=== PATIENT | female | born 1995 | race Hispanic/Latino ===

== ENCOUNTER 2019-01-02 10:26 | Emergency (ER) | payer SELFPAY ==
[2019-01-02] MEDS ORDERED: Famotidine/PF 20 mg/2ml Vial ONE (11:28)
[2019-01-02] MEDS ORDERED: Ondansetron PF 4 MG/2 ML Vial ONE (11:28)
[2019-01-02 11:44] LABS: BHCG - Serum Negative (NEGATIVE); Pregs Control Background? CLEAR/WHITE (CLR/WHITE); Pregs Control Bar Appear? YES (CONTROL BAR)
[2019-01-02 11:47] LABS: Mean Corpuscular HGB CONC 31.6 g/dL (32.0-36.0); Mean Corpuscular Hemoglobin 24.4 pg (27.0-31.0); Mean Corpuscular Volume 77.3 fL (78.0-98.0); Mean Platelet Volume 12.1 fL (7.4-10.4); Platelet Count 200 thou/uL (130-400); RBC Distribution Width 16.1 % (11.5-14.5); Red Blood Cell (RBC) Count 4.93 mill/uL (4.20-5.40); White Blood Cell (WBC) Count 8.3 thou/uL (4.8-10.8)
[2019-01-02 11:49] LABS: ALT (SGPT) 11 U/L (8-55); AST (SGOT) 18 U/L (5-34); Albumin 4.8 g/dL (3.5-5.0); Alkaline Phosphatase 56 U/L (40-150); Anion Gap 20 mmol/L (10-20); BUN (Urea Nitrogen) 15 mg/dL (7.0-18.7); Bilirubin, Total 1.3 mg/dL (0.2-1.2); Calc. Creatinine Clearance 0 mL/min (70-130); Calcium 9.6 mg/dL (7.8-10.44); Carbon Dioxide 19 mmol/L (22-29); Chloride 106 mmol/L (98-107); Estimated GFR-MDRD Greater than 90; Globulin 3.1 g/dL (2.4-3.5); Glucose 67 mg/dL (70-105); Lipase 36 U/L (8-78); Potassium 3.8 mmol/L (3.5-5.1); Protein, Total 7.9 g/dL (6.0-8.3); Sodium 141 mmol/L (136-145)
[2019-01-02 11:54] LABS: #Basophils 0.1 thou/uL (0.0-0.2); #Lymphocytes 0.9 thou/uL (1.20-3.40); #Monocytes 0.5 thou/uL (0.11-0.59); #Neutrophils 6.9 thou/uL (1.40-6.50); %Basophils 0.8 % (0.0-1.0); %Eosinophils 0.1 % (0.0-10.0); %Lymphocytes 10.6 % (21.0-51.0); %Monocytes 5.5 % (0.0-10.0); Large Platelets SLIGHT; MDiff Complete? YES; Microcytosis SLIGHT = 6-15 cells (100X) (0-5/hpf); Platelet Morphology Comment Appears Adequate
[2019-01-02 12:35] LABS: Bilirubin Moderate (Negative); Blood, Urine Large (Negative); Clarity Cloudy (Clear); Glucose, Urine (Dipstick) Negative (Negative); Leukocyte Negative (Negative); Nitrite Positive (Negative); Protein, Urine (Dipstick) > or equal to 300 mg/dL (Neg-Trace)
[2019-01-02 12:40] LABS: RBC/HPF Greater than 50 HPF (0-3)
[2019-01-02 12:41] LABS: Bacteria/HPF 1+ HPF (None Seen); Squamous Epithelial 0-3 HPF (0-3)
[2019-01-02 12:42] LABS: Mucous/LPF 1+ LPF (<2+)
== END 2019-01-02 13:00 | disposition home or self-care (01) ==
LOC: SCSER 10:26
DX: K29.70 Gastritis, unspecified, without bleeding (principal); F17.210 Nicotine dependence, cigarettes, uncomplicated
CPT/HCPCS: 80053; 81003; 81015; 83690; 84703; 85025; 96361; 96374; 96375; J2405; S0028

== ENCOUNTER 2019-08-07 21:39 | Emergency (ER) | payer SELFPAY ==
[2019-08-07 22:36] LABS: Bilirubin Negative (Negative); Blood, Urine Negative (Negative); Clarity Turbid (Clear); Glucose, Urine (Dipstick) Normal (Negative); Leukocyte 25 Leu/uL (Negative); Mucous/LPF 1+ LPF (<2+); Nitrite Negative (Negative); Protein, Urine (Dipstick) 20 mg/dL (Neg-Trace); RBC/HPF 0-3 HPF (0-3); Urobilinogen Normal mg/dL (Less than 2); WBC/HPF 0-3 HPF (0-3)
[2019-08-07 22:38] LABS: #Basophils 0.1 thou/uL (0.0-0.2); #Eosinphils 0.1 thou/uL (0.0-0.7); #Lymphocytes 2.3 thou/uL (1.20-3.40); #Monocytes 0.7 thou/uL (0.11-0.59); #Neutrophils 6.6 thou/uL (1.40-6.50); %Basophils 1.1 % (0.0-1.0); %Eosinophils 1.1 % (0.0-10.0); %Lymphocytes 23.1 % (21.0-51.0); %Monocytes 7.1 % (0.0-10.0); %Neutrophils 67.5 % (42.0-75.0); Hemoglobin 12.5 g/dL (12.0-16.0); Mean Corpuscular HGB CONC 31.3 g/dL (32.0-36.0); Mean Corpuscular Hemoglobin 25.2 pg (27.0-31.0); Mean Corpuscular Volume 80.3 fL (78.0-98.0); Mean Platelet Volume 10.5 fL (7.4-10.4); Platelet Count 209 thou/uL (130-400); RBC Distribution Width 16.3 % (11.5-14.5); Red Blood Cell (RBC) Count 4.97 mill/uL (4.20-5.40); White Blood Cell (WBC) Count 9.8 thou/uL (4.8-10.8)
[2019-08-07 22:41] LABS: Bacteria/HPF Rare-Few HPF (None Seen); Sperm/HPF 1+ HPF (None Seen)
[2019-08-07 23:01] LABS: ALT (SGPT) 9 U/L (8-55); AST (SGOT) 19 U/L (5-34); Albumin 4.6 g/dL (3.5-5.0); Alkaline Phosphatase 73 U/L (40-110); Anion Gap 12 mmol/L (10-20); BUN (Urea Nitrogen) 9 mg/dL (7.0-18.7); Bilirubin, Total 0.6 mg/dL (0.2-1.2); Calc. Creatinine Clearance 0 mL/min (70-130); Calcium 9.6 mg/dL (7.8-10.44); Carbon Dioxide 23 mmol/L (22-29); Chloride 104 mmol/L (98-107); Estimated GFR-MDRD Greater than 90; Glucose 74 mg/dL (70-105); Potassium 4.3 mmol/L (3.5-5.1); Protein, Total 7.6 g/dL (6.0-8.3); Sodium 135 mmol/L (136-145)
== END 2019-08-07 23:20 | disposition home or self-care (01) ==
LOC: ERS 21:39
DX: O99.281 Endocrine, nutritional and metabolic diseases complicating pregnancy, first trimester (principal); E86.0 Dehydration; Z3A.01 Less than 8 weeks gestation of pregnancy
CPT/HCPCS: 36415; 80053; 81003; 81015; 85025; 93005

== ENCOUNTER 2020-03-28 09:22 | Outpatient (CLI) | payer OTHER ==
[2020-03-28 19:47] LABS: SARS-CoV-2 MS2 Positive; SARS-CoV-2 N Gene Negative; SARS-CoV-2 S Gene Negative; SARS-CoV-2 by NAA Not Detected (NotDetected); SARS-CoV-2 orf1ab Negative
== END 2020-03-28 09:23 | disposition home or self-care (01) ==
LOC: LABBT 09:22
PROVIDERS: ATTEND Student in an Organized Health Care Education/Training Program
DX: Z20.828 Contact with and (suspected) exposure to other viral communicable diseases (principal)
CPT/HCPCS: 87635; U0003

== ENCOUNTER 2020-03-31 19:30 | Inpatient (IN) | payer OTHER ==
[~2020-03-31 19:30] MED LIST: Bupivacaine/Epinephrine 0.25% 30 ML VIAL ONE; Lidocaine 2% MPF 10 ML AMP (For Epidural Use) ONE
[2020-03-31 20:42] VITALS: BMI 26.8
[2020-03-31] MEDS ORDERED: Ibuprofen 800 MG TAB PO PRN (22:41)
[2020-03-31] MEDS ORDERED: Docusate 100 MG CAP PO PRN (22:41)
[2020-03-31] MEDS ORDERED: Carboprost 250 MCG/ML AMP IM PRN (22:41)
[2020-03-31] MEDS ORDERED: Acetaminophen 500 MG TAB PO PRN (22:41)
[2020-03-31] MEDS ORDERED: NS / Oxytocin 40 units/1000ml 1,000 ML IV PRN (22:41)
[2020-03-31] MEDS ORDERED: Lidocaine 1% (PF) 30 ML VIAL SC PRN (22:41)
[2020-03-31] MEDS ORDERED: Misoprostol 200 MCG TAB PR PRN (22:41)
[2020-03-31] MEDS ORDERED: Ondansetron PF 4 MG/2 ML Vial IVP PRN (22:41)
[2020-03-31] MEDS ORDERED: hydrALAZINE 20 MG/ML VIAL SLOW IVP PRN (22:41)
[2020-03-31] MEDS ORDERED: Methylergonovine 0.2 MG/ML VIAL IM PRN (22:41)
[2020-03-31] MEDS ORDERED: Promethazine HCl 25 MG/ML VIAL IM PRN (22:41)
[2020-03-31] MEDS ORDERED: Butorphanol Tartrate 1 MG/ML VIAL SLOW IVP PRN (22:41)
[2020-03-31 23:07] LABS: Hemoglobin 12.9 g/dL (12.0-16.0); Mean Corpuscular HGB CONC 35.5 g/dL (32.0-36.0); Mean Corpuscular Hemoglobin 33.8 pg (27.0-31.0); Mean Corpuscular Volume 95.2 fL (78.0-98.0); Mean Platelet Volume 11.4 fL (7.4-10.4); Platelet Count 112 thou/uL (130-400); Red Blood Cell (RBC) Count 3.83 mill/uL (4.20-5.40); White Blood Cell (WBC) Count 9.8 thou/uL (4.8-10.8)
--- NOTE | 2020-03-31 23:13 | PDOC.FPROB ---
FMR OB H&P: HPI - History of Present Illness Chief Complaint: IOL for post dates History of Present Illness: Pt is a 25 yo F @41 wks by 1T sono confirmed with LMP who presents for IOL for post dates. She is feeling well. Denies ctx/LOF/VB/VD. Baby moving well. FMR OB H&P: Current - Care : 1 Para: 0 Gestational age: 41wga Due date: 03/24/2020 Dating Criteria: 1T sono confirmed with LMP+ - OB Labs Blood type: O RH: positive Antibody Screen: negative HIV: negative RPR: negative HepBsAg: negative Rubella: non-immune Urine drug screen: negative Gonorrhea: negative Chlamydia: negative Pap Smear: NILM 3 hour GTT: 77/158/97 GBS: negative H&H: 12.5/35.7 Platelets: 134 FMR OB H&P: History - Past Medical History PMH: iron deficiency - OB History OB History: hx of BV and som treated UDS positive in 1T for THC - CLOSING SUPERVISOR History CLOSING SUPERVISOR History: LMP 06/18/2019 menarche 14 denies hx of STDs - Surgical History Sx History: denies - Social History Social History: denies drugs, alcohol or tobacco use in , but 1T UDS + for THC - Family History Family History: Father- DM 2, HLD, anxiety/ depression Mother- Graves, HTN, depression/anxiety brother- asthma FMR OB H&P: Medications - Current Home Medications: Medication Instructions Recorded Confirmed Type Ferrous Sulfate [Iron] 325 mg PO DAILY 03/31/20 03/31/20 History 21/Iron Fu/Folic Acid 1 tablet PO DAILY 03/31/20 03/31/20 History [ Complete Caplet] Allergies/Adverse Reactions: Allergies Allergy/AdvReac Type Severity Reaction Status Date / Time No Known Allergies Allergy Verified 03/31/20 20:35 FMR OB H&P: ROS - Review of Systems General: denies: fever/chills, weight/appetite/sleep changes Eyes: denies: vision changes Cardiovascular: denies: chest pain, palpitation, edema Respiratory: denies: shortness of breath Gastrointestinal: denies: abdominal pain, nausea, vomiting Genitourinary (Female): denies: dysuria, vaginal discharge, vaginal pain, vaginal bleeding, contractions, vaginal pressure Neurologic: denies: weakness Integumentary: denies: rash, lesions Psychological: denies: depression, anxiety FMR OB H&P: Vital Signs - Maternal Vital signs: Vital Signs - First Documented Temp Pulse Resp BP 98.7 F 74 18 124/66 03/31/20 20:33 03/31/20 20:33 03/31/20 20:33 03/31/20 20:33 - Heart Tones Baseline: 135 Variability: moderate Acceleration: present Deceleration: absent Category: category 1 [place] contractions every: 5min FMR OB H&P: Physical Exam - Physical Exam General: NAD, awake, alert and oriented HEENT: normocephalic and atraumatic, EOMI, MMM, conjunctiva clear Neck: supple Heart: RRR, normal S1/S2 General: CTAB, no respiratory distress Abdomen: soft, gravid, non-tender Musculoskeletal: pulses present, FROM in all four extremities Neurological: cranial nerves II through XII intact, no focal deficit Skin: no rash, good tugor, capillary refill <2 seconds Lymphatic: no unusual bruising or bleeding Psychiatric: intact recent and remote memory, good judgement and insight - Pelvic Exam Vulva: normal hair distribution, appropriate jim stage SVE: Piña score: 4 Membranes: intact Presentation: cephalic FMR OB H&P: Results - Labs Lab results: Laboratory Results - last 24 hr 03/31/20 22:51 WBC 9.8 RBC 3.83 L Hgb 12.9 Hct 36.4 MCV 95.2 MCH 33.8 H MCHC 35.5 RDW 12.0 Plt Count 112 L MPV 11.4 H FMR OB H&P: A/P Disposition: Pt is a 25 yo F @41 wks by 1T sono confirmed with LMP who presents for IOL for post dates. 1. IOL for post dates -GBS neg -cervical check on admission -piña score 4, will start Cytotec 25 mcg q3H until favorable cervix and then consider Pitocin -cat 1 strip 135bpm +accels moderate variability. Ctx q5 min on admission -continuous monitoring -continue to monitor vitals -patient is unsure if she wants an epidural Anticipate . Discussion: Date/Time: 03/31/20 [id number] This H&P was discussed with Dr. Mcmanus and Dr. Romo who agree with the above documentation and plan. Addendum - Attending - Attending Attestation Date/Time: 04/01/20 1905 I personally evaluated the patient and discussed the management with Dr. Garcia at time of admission last night. I agree with the History, Examination, Assessment and Plan documented above with any addition or exceptions noted below.
[2020-03-31 23:43] LABS: HBSAg Index 0.14 S/CO (0-0.99); Hep B Surf Ag Non-Reactive S/CO (NonReactive)
[2020-03-31 23:44] LABS: Syphilis Antibody Nonreactive (Nonreactive); Syphilis Antibody Index 0.04 S/CO (<1.00 Non-Reactive)
[2020-03-31] MEDS: Misoprostol 100 MCG TAB VAG SCH (23:53)
--- NOTE | 2020-04-01 00:56 | PDOC.BPN ---
- Brief Progress Note Encounter Date: 03/31/20 Encounter Time: 23:55 Went to patient bedside to check to patient. She is doing well, occasionally feeling contractions. No LOF/VB/VD. Cat 1 strip 135bpm with moderate variability, positive accels no decels. Ctx q 5 min. Cytotec 25mcg placed. Last check was 09/18/-3 @ 2330. Plan to recheck cervix in 2-3 hours. Continue routine intrapartum care.
--- NOTE | 2020-04-01 03:04 | PDOC.LDPN ---
Labor & Delivery Progress Note - Subjective Subjective: comfortable - Objective Vital signs reviewed and normal: yes General: NAD, resting Uterine fundus: non tender Dilation: 4 Effacement: 25% Station: -3 FHT: category 1 (135bpm with moderate variability), variability present [place] contractions every: 2min Plan: continue plan of care -: Will hold off on additional dose of Cytotec for now as patient has borderline tachysystole. Will continue to monitor strip and consider an additional dose of Cytotec. Continue current course, anticipate .
--- NOTE | 2020-04-01 05:43 | PDOC.LDPN ---
Labor & Delivery Progress Note - Subjective Subjective: comfortable (Patient doing well, resting comfortably in bed. Feels contractions occasionally, but aren't unbearable. No pressure. No LOF/VB/VD.) - Objective Vital signs reviewed and normal: yes General: NAD, resting Uterine fundus: non tender Dilation: 4 Effacement: 50% Station: -3 FHT: category 1, variability present [place] contractions every: irritability Plan: continue plan of care (Cervical change with effacement. Continue monitoring. Consider placing an additional cytotec as piña score is 5 and tachysystole is no longer evident on toco. Continue routine care. Anticipate .)
--- NOTE | 2020-04-01 08:22 | PDOC.LDPN ---
Labor & Delivery Progress Note - Subjective Subjective: comfortable - Objective Vital signs reviewed and normal: yes General: NAD Dilation: 4 Effacement: 50% Station: -3 FHT: category 1, variability present [place] contractions every: 1-2 min -: Continue with labor augmentation. Patient currently julieta every 1-2 min. Ramirez score 7. Will watch for contractions to space out and then will consider starting Pitocin.
[2020-04-01] MEDS ORDERED: NS w/ Oxytocin 10 units 500 ML ONE (09:01)
[2020-04-01] MEDS ORDERED: NS w/ Oxytocin 10 units 500 ML IV SCH (09:30)
--- NOTE | 2020-04-01 11:25 | PDOC.LDPN ---
Labor & Delivery Progress Note - Subjective Subjective: comfortable - Objective Vital signs reviewed and normal: yes General: NAD Dilation: 3 Effacement: 50% Station: -3 FHT: category 1, variability present [place] contractions every: 3-5min -: Continue plan of care. Patient started on pitocin @0900. Last check at 1000, will recheck in 2 hours and if progress consider AROM. Addendum - Attending - Attending Attestation Date/Time: 04/01/20 1223 I personally evaluated the patient and discussed the management with Dr. Turcios. I agree with the History, Examination, Assessment and Plan documented above with any addition or exceptions noted below. I checked the patient. Internal os 3 cm. Already on pitocin so will continue and recheck.
--- NOTE | 2020-04-01 13:13 | PDOC.LDPN ---
Labor & Delivery Progress Note - Subjective Subjective: painful contractions - Objective Vital signs reviewed and normal: yes General: NAD, breathing through contractions Dilation: 4 Effacement: 50% Station: -2 FHT: category 1, variability present [place] contractions every: 3-5min Resuscitative measures: maternal position change -: Patient starting to feel contractions more. States that she still does not want an epidural. Pit running at 8-10. Cat I strip. Plan to AROM.
[2020-04-01] MEDS ORDERED: Fentanyl 4 mcg/Bup 0.1% Cadd 100 ML ONE ×2 (13:58→17:10)
[2020-04-01] MEDS ORDERED: Ondansetron PF 4 MG/2 ML Vial ONE ×2 (14:16→17:51)
[2020-04-01] MEDS ORDERED: Lactated Ringer's 500 ML IV PRN (14:53)
[2020-04-01] MEDS ORDERED: EPHEDRINE 25 MG/5 ML SYRINGE SLOW IVP PRN (14:53)
[2020-04-01] MEDS ORDERED: Promethazine HCl 25 MG/ML VIAL IM PRN ×2 (14:53→18:24)
[2020-04-01] MEDS ORDERED: Acetaminophen 325 MG TAB PO PRN (14:53)
[2020-04-01] MEDS ORDERED: Naloxone HCl 0.4 mg/ml Vial IVP PRN ×4 (14:53→18:24)
[2020-04-01] MEDS ORDERED: diphenhydrAMINE 50 MG/ML VIAL IVP PRN ×2 (14:53→18:24)
[2020-04-01] MEDS ORDERED: Ondansetron PF 4 MG/2 ML Vial IVP PRN ×2 (14:53→18:24)
[2020-04-01] MEDS ORDERED: Communication Order-Pharmacy FS SCH ×2 (15:00→18:30)
[2020-04-01] MEDS ORDERED: Fentanyl 4 mcg/Bupivacaine 0.1% Cassette 100 ML EPIDURAL SCH (15:00)
--- NOTE | 2020-04-01 15:30 | PDOC.LDPN ---
Labor & Delivery Progress Note - Subjective Subjective: comfortable - Objective Vital signs reviewed and normal: yes General: NAD Dilation: 4 Effacement: 50% Station: -2 FHT: category 1, variability present [place] contractions every: 2-3 min AROM: clear fluid Plan: continue plan of care -: Continue plan of care. Cat I strip. Will Recheck in 2 hours, consider placing IUPC at that time. Addendum - Attending - Attending Attestation Date/Time: 04/02/20 6933 I personally evaluated the patient and discussed the management with Dr. Turcios. I agree with the History, Examination, Assessment and Plan documented above with any addition or exceptions noted below. I was subsequently called due to variable decelerations. On my exam the patient was 5, 80, -2. I placed an IUPC, which passed easily. FHT's shortly thereafter decreased to 40's-50's bpm, confirmed with FSE, which revealed no change and no blood. This did not rapidly resolve despite position change, pitocin, bolus. I explained the need for an emergent and the patient agreed. Moved to OR rapidly for stat c/s.
[2020-04-01] MEDS ORDERED: CEFAZOLIN 1 GM VIAL ONE (17:03)
[2020-04-01] MEDS ORDERED: Azithromycin 500 MG VIAL ONE (17:04)
[2020-04-01] MEDS ORDERED: Midazolam HCl 2 mg/2 ml Vial ONE (17:06)
[2020-04-01] MEDS ORDERED: Oxytocin 10 UNITS/ML VIAL ONE ×4 (17:06→17:42)
[2020-04-01] MEDS ORDERED: Methylergonovine 0.2 MG/ML VIAL ONE (17:07)
[2020-04-01] MEDS ORDERED: Lidocaine 2% 10 ML INJ ONE ×3 (17:11→17:23)
[2020-04-01] MEDS ORDERED: NS / Oxytocin 40 units/1000ml 0 ML ONE (17:11)
[2020-04-01] MEDS ORDERED: Lidocaine 1% (PF) 30 ML VIAL ONE (17:11)
[2020-04-01] MEDS ORDERED: PROPOFOL 20 ML ONE (17:15)
[2020-04-01 17:22] LABS: Actual Bicarbonate (HCO3a) 20.1 mEq/L (22-28); Base Excess (BEa) -6.3 mEq/L (-2.0 to +3.0)
[2020-04-01 17:24] LABS: Actual Bicarbonate (HCO3v) 20 mEq/L (22-28); Base Excess -6.3 mEq/L (-2.0 to +3.0)
[2020-04-01] MEDS ORDERED: ePHEDrine 50 MG/ML VIAL ONE (17:47)
--- NOTE | 2020-04-01 17:52 | RAD ---
Exam: 1 view abdomen HISTORY: Evaluate surgical count. Evaluate for retained surgical instruments, sponges or other foreig n bodies. Patient is status post emergent . FINDINGS: There is increased density projecting over the lower abdomen and pelvis which may represent the uterus. Bowel gas pattern is nonspecific. There is no evidence of a foreign body projecting over the abdomen or pelvis. Midline skin sergo are noted. Nagy catheter is identified. No acute osseous abnormalities IMPRESSION: 1. No radiopaque foreign body. 2. Postsurgical changes compatible with emergent section.. 3. Findings were conveyed by the registered vascular technologist (rvt) to the OR after speaking directly with the ra diologist 04/01/2020 5:51 PM Code CR Transcribed Date/Time: 04/01/2020 6:09 PM
[2020-04-01] MEDS ORDERED: Ondansetron HCl/PF 4 MG/2 ML Vial IVP PRN (18:23)
[2020-04-01] MEDS ORDERED: L&D-Morphine 4 MG/ML VIAL SLOW IVP PRN (18:23)
[2020-04-01] MEDS ORDERED: Promethazine HCl 25 MG SUPP PR PRN (18:24)
[2020-04-01] MEDS ORDERED: Naloxone HCl 0.4 mg/ml Vial IV PRN (18:24)
[2020-04-01] MEDS ORDERED: Ketorolac Tromethamine 30 MG/ML VIAL IVP SCH (18:30)
[2020-04-01] MEDS ORDERED: Ketorolac Tromethamine 30 MG/ML VIAL ONE (18:37)
[2020-04-01] MEDS: Ketorolac Tromethamine 30 MG/ML VIAL IVP PRN ×2 (18:38→23:42)
[2020-04-01] MEDS ORDERED: Morphine 4 MG/ML VIAL ONE ×2 (19:17→19:33)
[2020-04-01] MEDS ORDERED: hydrALAZINE 20 MG/ML VIAL SLOW IVP PRN (20:47)
[2020-04-01] MEDS ORDERED: Lanolin Ointment 7 GM TUBE TOP PRN (20:47)
[2020-04-01] MEDS ORDERED: Simethicone Chewable 80 MG TAB PO PRN (20:47)
[2020-04-01] MEDS ORDERED: diphenhydrAMINE 25 MG CAP PO PRN (20:47)
--- NOTE | 2020-04-01 20:55 | PDOC.BPN ---
- Brief Progress Note Encounter Date: 04/01/20 Encounter Time: 20:15 Post-op check performed at 3hrs: Patient is doing well with pain at 4/10 at the superficial incision site. Her pain got as high as 8/10 and required morphine to bring down to a 3. Her uterus is firm and tender to palpation. Her incision is covered without breakthrough bleeding. She has no edema. Her urine output has been >3mL/kg/h and she has had minimal lochia. Her HR has been in the low 70s to upper 80s and her BP in the 120s. There is one BP recorded in the 150s but the nurse says her arm was bent as she was supporting baby to breastfeed so it is not an accurate reading, which she noted in the chart.
[2020-04-02] MEDS: Ketorolac Tromethamine 30 MG/ML VIAL IVP PRN (05:00)
[2020-04-02 06:22] LABS: Hemoglobin 9.3 g/dL (12.0-16.0); Mean Corpuscular Hemoglobin 32.6 pg (27.0-31.0); Mean Corpuscular Volume 95.9 fL (78.0-98.0); Mean Platelet Volume 11.1 fL (7.4-10.4); Platelet Count 105 thou/uL (130-400); RBC Distribution Width 11.8 % (11.5-14.5); Red Blood Cell (RBC) Count 2.86 mill/uL (4.20-5.40); White Blood Cell (WBC) Count 11.1 thou/uL (4.8-10.8)
[2020-04-02] MEDS ORDERED: HYDROcodone/Acetaminophen 5/325 mg Tablet PO PRN (06:30)
--- NOTE | 2020-04-02 07:07 | PDOC.PP ---
Post Progress Note Post Day #: 1 Subjective: Patient feeling okay this morning. Discussed yesterday's events and answered patient's questions about herself and baby. Mom states that she had moderate amount of lochia initially yesterday but no bleeding since. Had some vomiting right after the yesterday but nothing overnight. Has not tried to have any PO intake other than ice chips. Has not passed gas or attempted to ambulate. PO intake tolerated: yes Flatus: no Ambulation: no Vital Signs (12 hours) Temp Pulse Resp BP 04/02/20 05:06 98.1 F 80 16 116/66 04/02/20 00:07 98.1 F 72 16 116/67 04/01/20 22:26 98.2 F 81 16 114/58 L 04/01/20 21:13 97.9 F 85 16 132/68 Weight Weight 64.41 kg - Physical Examination General: NAD Cardiovascular: no m/r/g Respiratory: clear to auscultation bilaterally, non-labored breathing Abdominal: no distention, appropriately TTP Deviation from normal: incision bandage clean and dry Fundus firm & at: umbilicus Extremities: negative homans (B) Skin: no rash Neurological: no gross focal deficits Psychiatric: A&Ox3, normal affect Result Diagrams: 04/02/20 05:45 Additional Labs: Post Labs Hep Bs Antigen Non-Reactive S/CO (NonReactive) 03/31/20 22:51 Blood Type O POSITIVE 03/31/20 22:51 (1) Term delivered Code(s): O80 - ENCOUNTER FOR FULL-TERM UNCOMPLICATED DELIVERY Status: Acute (2) Non-reassuring heart rate or rhythm affecting management of fetus Code(s): [id number] - Status: Acute - Assessment/Plan 25 yo G1 now P1001 F @ 41.0 wks by 1T sono confirmed with LMP is post-op day #1 from [facility] for NRFHT: #Term , now delivered -delivered via [facility] at 1715 on 04/01/2020 for NRFHT -routine care -monitor I/Os, vitals -Tdap given 01/22/20 -desires OCPs for contraception -consult for assistance with #Rubella non-immune status -administer MMR prior to discharge #Thrombocytopenia -aware, continue to monitor Dispo: Stable, admitted to inpatient on [facility]. Continue to monitor and provide care today. Anticipate discharge in <48 hrs. Addendum - Attending - Attending Attestation Date/Time: 04/02/20 1100 I personally evaluated the patient and discussed the management with the team. I agree with the History, Examination, Assessment and Plan documented above with any addition or exceptions noted below. I spent quite a bit of time discussing yesterday's events with Ms. Anguiano. We discussed the bradycardia, the lack of any visible trauma to the uterus or obvious placental abruption that would explain the event, and the need for the surgery. She and her partner expressed understanding and gratitude. I reemphasized that she have the nurses call me if she needs anything or has any additional questions. She is overall doing well pp. Continue routine care.
[2020-04-02] MEDS: Misoprostol 100 MCG TAB VAG SCH ×2 (07:27→07:28)
[2020-04-02] MEDS ORDERED: Adacel (T-DAP) 0.5 ML SYRINGE IM ONE (09:00)
[2020-04-02] MEDS: Ibuprofen 800 MG TAB PO SCH ×2 (14:03→21:20)
[2020-04-02] MEDS: HYDROcodone/Acetaminophen 5/325 mg Tablet PO PRN ×2 (14:05→21:20)
[2020-04-03] MEDS: Ibuprofen 800 MG TAB PO SCH (06:28)
[2020-04-03] MEDS ORDERED: Measles/Mumps/Rubella 10 MCG/0.5 ML VIAL SC ONE (07:21)
--- NOTE | 2020-04-03 07:57 | PDOC.PP ---
Post Progress Note Post Day #: 2 Subjective: Patient feeling well this morning. Was able to tolerate eating meals yesterday. Has passed gas was able to ambulate around the room. Pain controlled with Ibuprofen and occasional [place]. PO intake tolerated: yes Flatus: yes Ambulation: yes Vital Signs (12 hours) Temp Pulse Resp BP Pulse Ox 04/03/20 00:33 98.6 F 78 18 118/84 98 Weight Weight 64.41 kg - Physical Examination General: NAD Cardiovascular: no m/r/g, RRR Respiratory: clear to auscultation bilaterally, non-labored breathing Abdominal: no distention, appropriately TTP Fundus firm & at: umbilicus Deviation from normal: no edema Skin: CS incision dry & intact, no rash Neurological: no gross focal deficits Psychiatric: A&Ox3, normal affect Result Diagrams: 04/02/20 05:45 Additional Labs: Post Labs Hep Bs Antigen Non-Reactive S/CO (NonReactive) 03/31/20 22:51 Blood Type O POSITIVE 03/31/20 22:51 (1) Term delivered Code(s): O80 - ENCOUNTER FOR FULL-TERM UNCOMPLICATED DELIVERY Status: Acute (2) Non-reassuring heart rate or rhythm affecting management of fetus Code(s): [id number] - Status: Acute - Assessment/Plan 25 yo G1 now P1001 F @ 41.0 wks by 1T sono confirmed with LMP is post-op day #1 from [facility] for NRFHT/ Bradycardia: #Term , now delivered -delivered via [facility] at 1715 on 04/01/2020 for NRFHT/ Bradycardia -routine care -monitor I/Os, vitals -Tdap given 01/22/20 -desires OCPs for contraception -consult for assistance with #Rubella non-immune status -MMR on 04/02 #Thrombocytopenia -aware, continue to monitor Dispo: Stable, admitted to inpatient on [facility]. Continue to monitor and provide care today. Anticipate discharge later today. Addendum - Attending - Attending Attestation Date/Time: 04/03/20 1315 I personally evaluated the patient and discussed the management with the team. I agree with the History, Examination, Assessment and Plan documented above with any addition or exceptions noted below. Plan home today. F/u Tuesday for wound check/staple removal. [place]MP reviewed and no prior rx.
--- NOTE | 2020-04-03 12:05 | OP ---
DATE OF PROCEDURE: 04/01/2020 ATTENDING SURGEON: Boyd Pierre MD BANK SALES AND SERVICE MANAGER: Meagan Justin MD SECOND VP INTEGRITY: Clint Lacey MD PROCEDURE PERFORMED: Emergent primary low-transverse section. PREOPERATIVE DIAGNOSES: 1. Late-term intrauterine . 2. bradycardia/prolonged deceleration. POSTOPERATIVE DIAGNOSES: 1. Late-term intrauterine . 2. bradycardia/prolonged deceleration. 3. hemorrhage. ANESTHESIA: Epidural and TIVA. INDICATIONS AND CONSENT: This is a 25-year-old G1, P0, who is being induced for late term induction. She progressed to 5 cm and started having recurrent variable decelerations. The decision was made to place an IUPC and start an amnioinfusion. I placed IUPC, which passed easily and subsequently the baby developed bradycardia down to the 40s and 50s with absent variability. She was rechecked again, no cervical change was noted and no bleeding as well. Despite position changes, turning off pitocin and bolus, after approximately 45 minutes of bradycardia, which did not resolve, the decision was made to proceed with a stat . I explained this to the patient and she desired to proceed. PROCEDURE IN DETAIL: After the above, the patient was taken back to the operating room and prepped and draped emergently but in sterile fashion and given Ancef 2 g and azithromycin 500 mg during the case. Because of the emergent nature, the case was started without Anesthesia present. A Pfannenstiel skin incision was made with scalpel and this was carried down sharply with the fascia, which was incised bilaterally and then this was extended bluntly. The rectus sheath was bluntly dissected off the rectus muscles in superior and inferior fashion and the peritoneum was entered bluntly and high, this was stretched and a bladder blade was placed. The lower segment was visualized and incised transversely with a scalpel and the hysterotomy was extended with cranio-caudal traction. Clear fluid was noted. I inserted my hand and with careful attention paid to not use the lower segment as a fulcrum, delivered the head and the fetus subsequently delivered atraumatically. Cord was clamped and cut and the baby was taken to the awaiting warmer with NICU attendants. Blood gases were taken and cord blood was sampled. Placenta delivered with controlled cord traction and the uterus was wiped and exteriorized. No obvious trauma was noted to the uterus. Poor tone and excessive bleeding was noted. This resolved with IU injection of pitocin and IM methergine. The hysterotomy was closed with 1 Monocryl in a running locked fashion with good results and hemostasis and was then replaced. The patient had moderate discomfort at this time and Anesthesia by then had shown up and had obtained adequate anesthesia and the remainder of the procedure was tolerated well. The abdomen was irrigated. Hysterotomy was reinspected after replacement and was noted to be hemostatic again. The fascia was closed in a running locked fashion with 0 PDS. Subcutaneous tissue was irrigated and no bleeders were noted and the skin was closed with sergo. Because there was not a preoperative count, KUB was called for, this was performed and was negative as verified with both my view and radiology read prior to scrubbing out. No immediate complications were noted. QBL: 1130 at the time of delivery. COMPLICATIONS: hemorrhage. SPECIMENS: Cord blood for both blood type and gases. Placenta, which appeared grossly normal without evidence of abruption. FINDINGS: Grossly normal female infant with Apgars of 3 and 9. Job ID: [id number] [facility]
[2020-04-03 12:23] VITALS: BP 120/72; TEMP 98.3
== END 2020-04-03 12:55 | disposition home or self-care (01) | DRG 787 ==
LOC: L&D 19:49 → 3SW 04-02 06:35
PROVIDERS: ADMIT Family Medicine; ATTEND Family Medicine
PROC: 10H07YZ Insertion of Other Device into Products of Conception, Via Natural or Artificial Opening (ICD-10-PCS; 2020-03-31)
PROC: 10D00Z1 Extraction of Products of Conception, Low, Open Approach (ICD-10-PCS; principal; 2020-04-01)
PROC: 3E0E7GC Introduction of Other Therapeutic Substance into Products of Conception, Via Natural or Artificial Opening (ICD-10-PCS; 2020-04-01)
PROC: 10907ZC Drainage of Amniotic Fluid, Therapeutic from Products of Conception, Via Natural or Artificial Opening (ICD-10-PCS; 2020-04-01)
PROC: 3E0P7VZ Introduction of Hormone into Female Reproductive, Via Natural or Artificial Opening (ICD-10-PCS; 2020-04-01)
PROC: 3E033VJ Introduction of Other Hormone into Peripheral Vein, Percutaneous Approach (ICD-10-PCS; 2020-04-01)
DX: O48.0 Post-term pregnancy (principal); O99.12 Other diseases of the blood and blood-forming organs and certain disorders involving the immune mechanism complicating childbirth; O72.1 Other immediate postpartum hemorrhage; O76 Abnormality in fetal heart rate and rhythm complicating labor and delivery; Z3A.41 41 weeks gestation of pregnancy; Z37.0 Single live birth; D69.6 Thrombocytopenia, unspecified
CPT/HCPCS: 36415; 74018; 82805; 85027; 86780; 86850; 86900; 86901; 87340; 88307; J0456; J0690; J1885; J2001; J2210; J2250; J2270; J2405; J2590; J2704; J3490